=== PATIENT | female | born 1975 | race African-American/Black ===

== ENCOUNTER 2020-03-30 12:45 | Emergency (ER) | payer OTHER, MEDICAID, SELFPAY ==
--- NOTE | ~2020-03-30 | CT_ITS ---
EXAMINATION: CTA chest PE protocol DATE: 03/30/2020 16:01 INDICATION: Dyspnea. COVID-19 positive on 03/16/2020. TECHNIQUE: Computed tomography angiography (CTA) of the chest was performed with 100 mL Omnipaque-350 intravenous contrast timed to evaluate the pulmonary arteries. Coronal maximum intensity projection 3D-reconstructions were created by the technologist. Automated exposure control and iterative reconst ruction technique were employed. The dose-length product was 816.00 mGy-cm. COMPARISON: CT abdomen and pelvis 08/21/2015 FINDINGS: The lung volumes are small. There are patchy groundglass opacities in all lobes. No pleural effusion. The heart size is normal. No pericardial effusion. There is mild mediastinal and left jeana r lymphadenopathy, likely reactive. There is no pulmonary embolus. There is mild thoracic spondylosis . IMPRESSION: 1. No pulmonary embolus. 2. Diffuse lung disease, consistent with COVID-19 pneumonia. 3. Mild mediastinal and left hilar lymphadenopathy, likely reactive. Reviewed, dictated and finalized at location A. 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
--- NOTE | ~2020-03-30 | XR_ITS ---
EXAMINATION: XR chest 1V portable INDICATION: Cough and shortness of breath TECHNIQUE: Portable AP chest at 1401 hours COMPARISON: None available FINDINGS: Patchy bilateral airspace opacities are present. There is no pleural effusion or pneumothor ax. The cardiomediastinal silhouette is normal. IMPRESSION: 1. Patchy bilateral airspace opacities, likely pneumonia. Reviewed, dictated and finalized at location A. 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
[2020-03-30 13:26] VITALS: BP 129/77; PULSE 111; RESP 20; TEMP 36.5; O2SAT 97
[2020-03-30 13:53] VITALS: BP 120/80; PULSE 103; RESP 18; TEMP 36.7; O2SAT 99
[2020-03-30 14:12] LABS: Basophils Percent Auto 0.7 % (0.2-1.2); Eosinophils Absolute Auto 0.2 K/mm3 (0-0.3); Eosinophils Percent Auto 3.3 % (0-4.4); Hematocrit 40.5 % (37.0-47.0); Hemoglobin 13.8 g/dL (12.0-15.0); Immature Granulocyte Absolute 0.04 K/mm3 (0.00-0.031); Immature Granulocyte Percent A 0.7 % (0-0.5); Lymphocytes Absolute Auto 1.79 K/mm3 (0.9-3.2); Lymphocytes Percent Auto 29.5 % (18.3-44.2); Mean Corpuscular HGB Conc 34.1 g/dl (32-36); Mean Corpuscular Hemoglobin 30.1 pg (26-34); Mean Corpuscular Volume 88.2 fl (80-100); Mean Platelet Volume 9.3 fl (7.4-10.4); Monocytes Absolute Auto 0.5 K/mm3 (0.1-0.6); Monocytes Percent Auto 8.9 % (2.6-8.5); Neutrophils Absolute Auto 3.5 K/mm3 (1.3-6.7); Neutrophils Percent Auto 56.9 % (45.5-73.1); Nucleated Red Blood Cells Perc 0.3 % (0.0-0.2); Platelet Count Result 418 k/mm3 (150-375); Red Blood Count 4.59 M/mm3 (4.2-5.4); White Blood Count 6.1 K/mm3 (4.5-10.0)
--- NOTE | 2020-03-30 14:12 | ED.GENADULT ---
HPI - General Adult General Chief complaint: Shortness of Breath/Dyspnea Stated complaint: covid 03/16/19 Time Seen by Provider: 03/30/20 13:47 Source: RN notes reviewed History of Present Illness HPI narrative: Patient presents emergency department from home for shortness of breath. Patient states she was diagnosed with Covid on 03/16/2020. She states she went through 7 days of symptoms and then the symptoms are resolved. She states she then began to feel short of breath 3 days ago. States that worse with activity she denies any fevers or chills chest pain coughing abdominal pain nausea vomiting or any other symptoms. Related Data Allergies Allergy/AdvReac Type Severity Reaction Status Date / Time No Known Allergies Allergy Unverified 08/21/15 07:05 Review of Systems Review of Systems: Narrative: Gen.: Denies fevers or chills ENT: Denies congestion Respiratory: See HPI CV: Denies chest pain or palpitations GI: Denies abdominal pain nausea, emesis or diarrhea Musculoskeletal: Denies back pain or muscle pain Neuro: Denies numbness, tingling, weakness or focal weakness Skin: Denies rash Except as documented, all other systems reviewed and negative [facility] Past Medical History Medical History (Updated 03/30/20 @ 17:10 by Vishnu Lee DO) COVID-19 Social History Social History Smoking status: Never smoker Alcohol intake: current Exam Narrative: Exam Narrative: APPEARANCE: No acute distress, nontoxic, resting in bed EYES: EOMI HEENT: Normocephalic, atraumatic, OMM RESPIRATORY: No respiratory distress Clear to auscultation bilaterally with no rhonchi wheezing or rales. CARDIOVASCULAR: Regular rate and rhythm without murmurs rubs or gallops. ABDOMINAL: Soft, nontender, nondistended, no rebound or guarding MUSCULOSKELETAl: Moves all extremities. No clubbing, cyanosis or edema. NEURO: Awake and alert. Following commands, speech normal, no focal deficits SKIN:: Warm, dry. No rashes lesions or abrasions PSYCHIATRIC: Normal affect/mood, Course Course Emergency Course: Discussed with patient her elevated blood sugar. No history of diabetes. Attempted to call and discussed with the patient's primary care physician dr Alfonso but he is unavailable and can only speak with his nurse I updated on the elevated blood sugar and the need for the patient follow-up in the office she requested patient call. Secondary to this with elevated blood sugar will start patient on low-dose Metformin Discussed with patient results of workup and diagnosis. Discussed need for follow-up with primary care, proper use of medication, and reasons to return to the emergency department. Patient understands and agrees to current treatment plan Vital Signs Vital signs: Vital Signs Temperature 97.7 F 03/30/20 13:26 Pulse Rate 111 H 03/30/20 13:26 Respiratory Rate 20 03/30/20 13:26 Blood Pressure 129/77 03/30/20 13:26 Pulse Oximetry 97 03/30/20 13:26 Temperature 98.0 F 03/30/20 13:53 Pulse Rate 103 H 03/30/20 13:53 Respiratory Rate 18 03/30/20 13:53 Blood Pressure 120/80 03/30/20 13:53 Pulse Oximetry 99 03/30/20 13:53 Medical Decision Making Vital Signs Vital Signs: Vital Signs Temperature 97.7 F 03/30/20 13:26 Pulse Rate 111 H 03/30/20 13:26 Respiratory Rate 20 03/30/20 13:26 Blood Pressure 129/77 03/30/20 13:26 Pulse Oximetry 97 03/30/20 13:26 Temperature 98.0 F 03/30/20 13:53 Pulse Rate 103 H 03/30/20 13:53 Respiratory Rate 18 03/30/20 13:53 Blood Pressure 120/80 03/30/20 13:53 Pulse Oximetry 99 03/30/20 13:53 Lab Data Result diagrams: 03/30/20 13:57 03/30/20 13:57 Labs: Lab Results 03/30/20 03/30/20 03/30/20 Range/Units 13:57 13:57 14:32 WBC 6.1 (4.5-10.0) K/mm3 RBC 4.59 (4.2-5.4) M/mm3 Hgb 13.8 (12.0-15.0) g/dL Hct 40.5 (37.0-47.0) % MCV 88.2
[2020-03-30 14:27] LABS: Anion Gap 5 mmol/L (8-16); Blood Urea Nitrogen 13 mg/dL (7-17); Calcium 8.9 mg/dL (8.4-10.2); Carbon Dioxide 23 mmol/L (22-30); Chloride 107 mmol/L (98-107); Estimated CRCL calculation 117 ml/min; Estimated Glomerular Filt Rate > 60; Glucose 317 mg/dL (65-105); Potassium 4.2 mmol/L (3.4-5.0); Sodium 135 mmol/L (137-145)
[2020-03-30 14:48] LABS: Prothrombin Time 14.1 Seconds (11.1-14.7)
[2020-03-30 14:49] LABS: Partial Thromboplastin Time 24.1 SECONDS (22.3-36.8)
[2020-03-30 14:52] LABS: D Dimer 1.33 ug/mL (<0.48)
[2020-03-30 16:00] VITALS: BP 135/76; PULSE 78; RESP 18; O2SAT 99
[2020-03-30] MEDS: DEXAMETHASONE SOD PHOS INJ 4 MG/ML VIAL 6 MG IV PUSH (16:27)
[2020-03-30] MEDS: ALBUTEROL SULFATE (*SP) AEROSOL 1 PUFF 2 PUFF INHALATION (16:31)
[2020-03-30 17:27] LABS: Hemoglobin A1C 10.9 % (<5.7)
[2020-03-30 18:00] VITALS: BP 140/68; PULSE 80; RESP 18; O2SAT 99
== END 2020-03-30 18:02 | disposition home or self-care (01) ==
PROVIDERS: Emergency Provider Emergency Medicine; PCP Internal Medicine Infectious Disease
DX: U07.1 COVID-19 (principal); J12.82 Pneumonia due to coronavirus disease 2019; R73.9 Hyperglycemia, unspecified
CPT/HCPCS: 36415; 71045; 71275; 80048; 83036; 85025; 85380; 85610; 85730; 96374; 99284; A9270; J1100; Q9967

== ENCOUNTER → 2020-06-21 04:29 | Outpatient (CLI) | payer OTHER, MEDICAID, SELFPAY ==
[2020-06-21 19:03] LABS: SARS-CoV-2 RNA PCR Negative
== END ==
PROVIDERS: PCP Internal Medicine Infectious Disease; Visit Provider Obstetrics & Gynecology
DX: Z01.812 Encounter for preprocedural laboratory examination (principal); Z20.822 Contact with and (suspected) exposure to COVID-19
CPT/HCPCS: C9803; U0003; U0005

== ENCOUNTER 2020-06-21 08:37 | Outpatient (CLI) | payer OTHER, MEDICAID, SELFPAY ==
--- NOTE | 2020-06-21 09:00 | ECG_ITS ---
Measurements Intervals [place] Rate: 76 P: 30 ID: 180 QRS: 0 QRSD: 86 T: 7 QT: 357 QTc: 403 Interpretive Statements SINUS RHYTHM DELAYED PRECORDIAL R/S TRANSITION VOLTAGE CRITERIA FOR LVH BORDERLINE T WAVE ABNORMALITY- INFERIOR LEADS BASELINE ARTIFACT- I, II, III, AVL, AVF BORDERLINE ECG Electronically Signed On 06-21-2020 9:17:51 CDT by Ron Rowell D.O.
[2020-06-21 09:18] LABS: Basophils Percent Auto 0.3 % (0.2-1.2); Eosinophils Absolute Auto 0.2 K/mm3 (0-0.3); Eosinophils Percent Auto 3.4 % (0-4.4); Hemoglobin 13.1 g/dL (12.0-15.0); Immature Granulocyte Absolute 0.02 K/mm3 (0.00-0.031); Immature Granulocyte Percent A 0.3 % (0-0.5); Lymphocytes Absolute Auto 2.29 K/mm3 (0.9-3.2); Lymphocytes Percent Auto 37.5 % (18.3-44.2); Mean Corpuscular HGB Conc 33.6 g/dl (32-36); Mean Corpuscular Hemoglobin 29.8 pg (26-34); Mean Corpuscular Volume 88.6 fl (80-100); Mean Platelet Volume 9.6 fl (7.4-10.4); Monocytes Absolute Auto 0.6 K/mm3 (0.1-0.6); Neutrophils Percent Auto 49.5 % (45.5-73.1); Platelet Count Result 276 k/mm3 (150-375); Red Cell Distribution Width 13.4 % (11.5-14.5); White Blood Count 6.1 K/mm3 (4.5-10.0)
[2020-06-21 09:31] LABS: Anion Gap 3 mmol/L (8-16); Blood Urea Nitrogen 11 mg/dL (7-17); Calcium 8.1 mg/dL (8.4-10.2); Carbon Dioxide 26 mmol/L (22-30); Chloride 107 mmol/L (98-107); Estimated Glomerular Filt Rate > 60; Glucose 152 mg/dL (65-105); Potassium 3.9 mmol/L (3.4-5.0); Sodium 136 mmol/L (137-145)
== END 2020-06-21 08:38 | disposition home or self-care (01) ==
LOC: ANHSURGERY 08:42
PROVIDERS: Anesthesiology; PCP Internal Medicine Infectious Disease; Visit Provider Obstetrics & Gynecology
DX: R73.9 Hyperglycemia, unspecified (principal); I10 Essential (primary) hypertension; D25.9 Leiomyoma of uterus, unspecified; Z01.818 Encounter for other preprocedural examination
CPT/HCPCS: 36415; 80048; 85025; 86850; 86900; 86901; 93005

== ENCOUNTER 2020-06-24 02:02 | Day surgery (SDC) | payer OTHER, MEDICAID, SELFPAY ==
[2020-06-10 14:32] VITALS: BMI 34.4
--- NOTE | 2020-06-21 09:31 | P.HP_ITS ---
H&P: HPI History of Present Illness Date/Time: 06/21/20 09:31 Worse is 44 she female multiparous needed for fever bilateral salpingectomy secondary to bleeding pelvic pain uterine fibroids with enlarged uterus. She has a failed ablation. She also has a hernia which Dr. 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 Gender identity (if verbalized by the patient): Female Spiritual care concerns: No Meds Home Medications and Allergies Home Medications Medication Instructions Recorded Confirmed Type lisinopril 10 mg tablet 10 mg PO DAILY 05/23/20 06/10/20 History albuterol sulfate 2 puff INHALATION Q4-6H PRN 06/10/20 06/10/20 History hydrochlorothiazide 12.5 mg PO DAILY 06/10/20 06/10/20 History metformin 500 mg PO BID 06/10/20 06/10/20 History Allergies Allergy/AdvReac Type Severity Reaction Status Date / Time No Known Allergies Allergy Verified 06/10/20 14:32 Exam Const: General: no acute distress Eyes: General: appearance normal, both eyes and all related structures Neck: Neck: supple and no JVD Thyroid: thyroid normal Resp: Effort & Inspection: normal respiratory effort Auscultation: clear to auscultation bilaterally Cardio: Rate: regular rate Rhythm: regular rhythm GI: Inspection: non-distended GI Palp: Yes Soft to palpation, No Tenderness to palpation present (GI) and No Guarding due to palpation present (GI) Auscultation: normal bowel sounds : General: Yes bladder normal to inspection External Female Exam: normal external appearance Speculum Exam - Vagina: normal appearance of the vagina Speculum Exam - Cervix: normal appearance of the cervix Bimanual exam- vagina & uterus: enlarged Bimanual Exam- Adnexa, other: no masses Skin: General skin exam: no rashes or lesions noted Extrem: General: normal to inspection and no edema Psych: Mental Status: mental status grossly normal Affect: normal affect Assessment and Plan Additional Plan impression: Enlarged uterus with pelvic pain and bleeding with failed ablation Plan: Robotic total vaginal hysterectomy and bilateral salpingectomies
[2020-06-24] VITALS (13 sets, daily range): BP systolic 122–153; BP diastolic 66–104; PULSE 83–107; RESP 16–20; TEMP 36.2–37.1; O2SAT 93–100
--- NOTE | 2020-06-24 06:43 | WPDHPUPDATE1 ---
History and Physical Update Update Date/Time: 06/24/20 06:43 History and Physical has been reviewed, including an updated exam of the patient. There are NO changes in the patient's condition. Risks, benefits, and alternatives have been discussed and questions answered. Patient agrees to proceed with procedure.
[2020-06-24] MEDS: ACETAMINOPHEN 500 MG TABLET 1000 MG PO (10:45)
--- NOTE | 2020-06-24 10:49 | WPDHPUPDATE1 ---
History and Physical Update Update Date/Time: 06/24/20 10:49 History and Physical has been reviewed, including an updated exam of the patient. There are NO changes in the patient's condition. Risks, benefits, and alternatives have been discussed and questions answered. Patient agrees to proceed with procedure.
[2020-06-24] MEDS: LACTATED RINGERS 1,000 ML 30 ML IV CONT ×2 (10:55→13:28)
[2020-06-24] MEDS: KETOROLAC 15 MG/ML VIAL (*BKC) IV PUSH (11:02)
[2020-06-24 11:05] LABS: Glucose Point of Care 151 (65-105)
--- NOTE | 2020-06-24 11:17 | P.PNAN_ITS ---
Anes - Initial Pre Proc Eval Procedure: Operation Date: 06/24/20 12:00 Proposed Procedures p Robotic Assisted Total Vaginal Hysterectomy With Bilateral Salpingectomy - Ra Daly MD s Umbilical Hernia Repair, Possible Mesh - Rory Park DO Date/Time: 06/24/20 11:17 Surgeon: Ra Daly MD Pre Op Diagnosis: pelvic pain, irregular bleeding, fibroids, Patient Data Age: 44 Gender: F Height: 5 ft 11 in Weight: 112 kg Allergies Allergy/AdvReac Type Severity Reaction Status Date / Time No Known Allergies Allergy Verified 06/24/20 10:36 Home Medications Medication Instructions Recorded Confirmed Type lisinopril 10 mg tablet 10 mg PO DAILY 05/23/20 06/24/20 History albuterol sulfate 2 puff INHALATION Q4-6H PRN 06/10/20 06/24/20 History metformin 500 mg PO BID 06/10/20 06/24/20 History hydrocodone-acetaminophen 1 tablet PO Q6H PRN #30 tablet 06/24/20 Rx Laboratory Tests 06/24/20 10:55 POC Capillary Glucose 151 mg/dl H mg/dl (65-105) Patient hx anesthesia problems: none Family hx anesthesia problems: none PMFSH Past Medical History Medical History Asthma COVID-19 03/16/2020 HTN (hypertension) Surgical History Surgical History History of S/P endometrial ablation Social History Social History Smoking status: Never smoker Alcohol intake: current Drinks per week: 1 Substance use: never Substance use type: does not use Living arrangements: with family 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 Gender identity (if verbalized by the patient): Female Sexual Orientation (if Verbalized by the Patient): Straight or Heterosexual Spiritual care concerns: No Anes - Eval Final PreProcedure Day of Procedure 06/24/20 11:17 Patient weight: obese Heart: regular rate and rhythm Lungs: clear to auscultation Airway: Mallampati scale class II Neurological: alert and oriented Last oral intake: >/= 8 hours ASA classification: III Emergent: no Anesthetic plan: proceed Anesthesia type and monitoring: general LMA and standard monitoring Informed Consent: The patient's anesthetic plan and its attendant risks and benefits were discussed with the patient/family/POA. Questions were solicited and answers provided to the satisfaction of the patient/family/POA.
[2020-06-24] MEDS: ceFAZolin 2 GM/D5W 50 ML 2 GM/50 ML BAG IVPB (11:21)
--- NOTE | 2020-06-24 11:39 | SUR.PREOP ---
1100-DR. PARSONS AWARE PT TOOK SELF OFF METFORMIN AFTER 1 DAY USAGE ON 03/25/2020.
[2020-06-24] MEDS: BUPIVACAINE/EPINEPHRINE 0.5% 30 ML VIAL INFILTRATE (12:18)
--- NOTE | 2020-06-24 12:52 | PM.PROC ---
Procedure Note - Detailed Date of procedure: 06/24/20 Pre-op diagnosis: pelvic pain, irregular bleeding, fibroids, Surgeon: Ra Daly MD Postop diagnosis: Pelvic pain/irregular bleeding/uterine fibroids/pelvic adhesions Procedure: Robotic total vaginal hysterectomy and bilateral salpingectomies/extensive lysis of adhesions. This was done in conjunction with a umbilical hernia repair by Dr. Rory trevizo Anesthesia: General endotracheal EBL: 75cc Findings: A large umbilical hernia. Markedly enlarged uterus. Tubes status post tubal ligation. Normal-appearing ovaries bilaterally. Complications: None Description of procedure: The patient was prepped draped in the normal sterile fashion placed in the dorsal lithotomy position. Under excellent general endotracheal anesthesia weighted speculum placed in posterior fornix vagina. Anterior lip of the cervix grasped with a single-tooth tenaculum and the uterus sounded to 11cm. Serial dilatation with fragmented dilators performed followed by passes the 10. ELIZA and the 3. Cold cup. A 16 [place] catheter was placed in bladder and drained of clear urine. The remainder the instruments removed. The gloves were changed. A supraumbilical incision made in the [place] needle passed in the abdomen. The abdomen filled with CO2 gas to 15mm Hg. The 8mm trocar advanced in the abdomen downside visualized and no injury seen. Gas reattached patient placed in Trendelenburg and right left lateral quadrant incisions were made 8mm trocars were advanced under direct visualization. A right upper quadrant incision made the 10mm trocar advanced under direct visualization assuring no injury. This large hernia was noted in the umbilicus and using sharp dissection was sharply dissected using Endo Mary Alice until visualization could be undertaken pelvis. The robot was docked. Attention was turned to the console. The left round ligament was grasped, burned, cut anteriorly a bladder flap was formed and brought across the anterior portion of the uterus reflecting the bladder caudally to the opposite round ligament was clamped, burned, cut. Next the fallopian tube was dissected away from the ovary on left and then this was repeated dissecting the fallopian tube away on right. Utero-ovarian ligament on the left was serially skeletonized. This was clamped, burned, cut and brought to the previously cut ligament. Conserving the right ovary and the utero-ovarian ligament was clamped, burned, cut and brought to the level of the previously cut round. Left cardinal and broad ligaments to in serially skeletonized and brought down the lateral edge of the uterus clamping burning cutting until the uterine vessels could be seen on left these were large tortuous individual clamping burning cutting was undertaken bilaterally. These were clamped, burned, cut. Right the cardinal broad ligaments were serially skeletonized clamped, burned, cut and brought down the lateral edge of the uterus and to the uterine vessels could be seen there these were individually clamped, burned, cut. Good blanching of the uterus was seen at a colpotomy incision was made the cervix uterus and tubes brought through the vagina. Blood loss estimated 75cc. The vagina closed with continuous running 0V lock from lateral edge to lateral edge back to midline. Irrigation undertaken to clear and the vaginal cuff area sprinkled with [place] term over the raw surface areas. Blood loss estimated 75cc all sponge, needle, instrument counts were correct. That point Dr. Rory polanco took over to repair the hernia. There were no complications to this point
--- NOTE | 2020-06-24 13:13 | P.OP_ITS ---
Procedure Note - Detailed Date of procedure: 06/24/20 Pre-op diagnosis: umbilical hernia, uterine bleeding Post-op diagnosis: same Procedure performed: Umbilical hernia repair Description of procedure: Procedure as well as risks, benefits, and alternatives were discussed with the patient. Written consent was obtained and placed in chart prior to procedure. Patient was brought back to surgical suite. She was placed supine on operating table. She was then intubated by Anesthesia Department. Her abdomen was prepped and draped in sterile fashion using chlorhexidine prep. The patient underwent robotic hysterectomy by Dr. Carla Cruz. Please refer to his operative report for details. After completing the hysterectomy, I was called to the room to repair the umbilical hernia. 0.5% bupivacaine with epinephrine was inf iltrated locally around the operative area. A 4 cm cm curvilinear incision was made just superior to the umbilicus using a 15 blade scalpel. Electrocautery was used for hemostasis and for dissection down through the subcutaneous fat. Hernia sac was encountered and this was carefully freed up from surrounding subcutaneous fat using electrocautery. The hernia sac was freed up all the way down to the level of the fascia, and then it was transected using electrocautery. The hernia sac was excised and sent to the lab for pathology. The umbilical stalk was then lifted off of the fascia with electrocautery. The hernia defect was then measured. This was measuring approximately 10 mm. The decision was made to repair this primarily. 0 Ethibond itseco-ht-keibw sutures were placed transversely to approximate the fascia. The fascia appeared to come together without any significant tension with 3 nmgpsw-rj-[id number] sutures. The repair was inspected and appeared secure. 0.5% bupivacaine with epinephrine was infiltrated around the fascia and subcutaneous space. The umbilical stalk was then reapproximated to the fascia using a 3 0 Vicryl simple interrupted suture. The deep dermis was reapproximated using 3 0 Vicryl simple interrupted sutures, and then the skin was approximated using 4 Monocryl running subcuticular suture. Exofin glue was then applied on top. The patient was then awakened from anesthesia, extubated, and transferred to recovery. Anesthesia: GETA and local (0.5% bupivacaine with epinephrine) Surgeon: Rory Park DO Estimated blood loss (mL): 10 Pathology: yes (Hernia sac) Complications: No immediate complications Condition: stable Disposition: observation Findings: This is a 44-year-old woman who presented with a periumbilical bulge that had been present for about a year or so. This had gradually gotten larger and she has a prior CT that showed evidence of a hernia defect at the umbilicus. She was being evaluated for heavy menstrual bleeding and uterine fibroids and hysterectomy was recommended. Patient wished to proceed with umbilical hernia repair at the time of hysterectomy. After completing the robotic hysterectomy, I was called in to proceed with umbilical hernia repair. The patient was found to have a 1 cm umbilical hernia containing preperitoneal fat. The hernia sac was excised and sent to the lab for pathology. The fascial edges appeared to come together without significant tension therefore decision was made to repair this primarily using 0 Ethibond [id number]-js-ftcvw sutures. A total of 3 sutures were placed transversely to bring the fascia together. The repair appeared secure.
[2020-06-24] MEDS: fentaNYL CITRATE INJ (*CRX) 100 MCG/2 ML VIAL 25 MCG IV PUSH ×4 (13:40→13:59)
[2020-06-24] MEDS: DEXTROSE 5%/LACTATED RINGERS 1,000 ML 125 ML IV CONT (15:58)
[2020-06-24 16:00] LABS: Glucose Point of Care 161 (65-105)
[2020-06-24] MEDS: KETOROLAC 30 MG/ML VIAL (*BKC) IV PUSH (16:05)
[2020-06-24] MEDS: SIMETHICONE 80 MG TAB.CHEW PO (16:06)
[2020-06-24] MEDS: DOCUSATE SODIUM 100 MG CAPSULE PO (16:20)
[2020-06-24] MEDS: HYDROcodone/acetaminophen (*CRX) 10-325 MG TABLET 1 TAB PO (16:21)
[2020-06-25] MEDS: HYDROcodone/acetaminophen (*CRX) 5-325 MG TABLET 1 TAB PO (05:01)
[2020-06-25 05:07] VITALS: BP 130/76; PULSE 86; RESP 18; TEMP 36.8; O2SAT 96
[2020-06-25 06:00] LABS: Basophils Percent Auto 0.2 % (0.2-1.2); Eosinophils Absolute Auto 0.1 K/mm3 (0-0.3); Eosinophils Percent Auto 1.7 % (0-4.4); Hematocrit 36.1 % (37.0-47.0); Hemoglobin 12.1 g/dL (12.0-15.0); Immature Granulocyte Absolute 0.03 K/mm3 (0.00-0.031); Immature Granulocyte Percent A 0.4 % (0-0.5); Lymphocytes Absolute Auto 1.88 K/mm3 (0.9-3.2); Lymphocytes Percent Auto 22.2 % (18.3-44.2); Mean Corpuscular HGB Conc 33.5 g/dl (32-36); Mean Corpuscular Volume 89.4 fl (80-100); Mean Platelet Volume 9.8 fl (7.4-10.4); Monocytes Absolute Auto 0.8 K/mm3 (0.1-0.6); Monocytes Percent Auto 9.5 % (2.6-8.5); Neutrophils Absolute Auto 5.6 K/mm3 (1.3-6.7); Platelet Count Result 296 k/mm3 (150-375); Red Blood Count 4.04 M/mm3 (4.2-5.4); Red Cell Distribution Width 13.2 % (11.5-14.5); White Blood Count 8.5 K/mm3 (4.5-10.0)
--- NOTE | 2020-06-25 07:50 | P.PNAN_ITS ---
Anes - Prog Note Post-Op Date/Time: 06/25/20 07:50 Cardiovascular status: normal Respiratory status: normal Airway patency: baseline Mental status: baseline Post-Op hydration status: normal Vital Signs: Last Vital Signs Temp 36.8 C 06/25/20 05:07 Pulse 86 06/25/20 05:07 Resp 18 06/25/20 05:07 BP 130/76 06/25/20 05:07 Pulse Ox 96 06/25/20 05:07 Pain Score (VAS): 4 I/O: Intake & Output 06/24/20 06/24/20 06/25/20 15:59 23:59 07:59 Intake Total 300 1170 400 Output Total 100 500 900 Balance 200 670 -500 Laboratory Tests 06/25/20 04:40 06/24/20 06/24/20 06/25/20 10:55 13:37 04:40 WBC 8.5 RBC 4.04 L Hgb 12.1 Hct 36.1 L MCV 89.4 MCH 30.0 MCHC 33.5 RDW 13.2 Plt Count 296 MPV 9.8 Immature Gran % (Auto) 0.4 Neut % (Auto) 66.0 Lymph % (Auto) 22.2 [place] % (Auto) 9.5 H Eos % (Auto) 1.7 Baso % (Auto) 0.2 Lymph # (Auto) 1.88 [place] # (Auto) 0.8 H Eos # (Auto) 0.1 Baso # (Auto) 0.0 Abs Immat Gran (auto) 0.03 Absolute Neuts (auto) 5.6 Absolute Nucleated RBC 0.0 Nucleated RBC % 0.0 POC Capillary Glucose 151 H 161 H Post-procedural complaints: none Patient Feedback: Patient satisfied with anesthetic care.
--- NOTE | 2020-06-25 08:14 | PM.DS ---
DS: Admitting Diagnosis Admitting Diagnosis Admitting Diagnosis: abnormal uterine bleeding, pelvic pain, enlarged uterus DS: Summary Hospital Course Hospital Course: Robert An was admitted after robotic assisted total laparoscopic hysterectomy and bilateral salpingectomy for abnormal uterine bleeding, pelvic pain and fibroids. The above procedure was performed with no complications. She is doing well post op. She states her pain is well controlled with PO medications. She reports minimal bleeding. She is ambulating up to the chair. Her forrest catheter was removed. She is tolerating PO without N/V. She reports passing flatus. Status at Discharge Overall status at discharge: patient is progressing back to baseline Time Spent with Patient Time attestation: Total time spent providing and/or coordinating discharge services: Time spent: Less than 30 minutes Exam Const: General: comfortable and no acute distress Limitations: no limitations Resp: Effort & Inspection: normal respiratory effort Auscultation: clear to auscultation bilaterally Cardio: Rate: regular rate Rhythm: regular rhythm GI: Inspection: non-distended GI Palp: Yes Soft to palpation, Yes Tenderness to palpation present (GI) (milder tenderness to deep palpation) and No Guarding due to palpation present (GI) Auscultation: normal bowel sounds Other: incisions C/D/I covered with dermabond Urinary Catheter: Urinary Catheter: urine clear Skin: General skin exam: normal color Extrem: General: normal to inspection Psych: Mental Status: mental status grossly normal Affect: normal affect DS: Data Data Completed and Pending Pending studies at discharge: Pending at discharge 06/24/20 12:18 Surgical [PTH] Routine Surgical [PTH] Routine Labs on day of discharge: Labs from last 24 hours 06/25/20 06/24/20 06/24/20 04:40 13:37 10:55 WBC 8.5 RBC 4.04 L Hgb 12.1 Hct 36.1 L MCV 89.4 MCH 30.0 MCHC 33.5 RDW 13.2 Plt Count 296 MPV 9.8 Immature Gran % (Auto) 0.4 Neut % (Auto) 66.0 Lymph % (Auto) 22.2 [place] % (Auto) 9.5 H Eos % (Auto) 1.7 Baso % (Auto) 0.2 Lymph # (Auto) 1.88 [place] # (Auto) 0.8 H Eos # (Auto) 0.1 Baso # (Auto) 0.0 Abs Immat Gran (auto) 0.03 Absolute Neuts (auto) 5.6 Absolute Nucleated RBC 0.0 Nucleated RBC % 0.0 POC Capillary Glucose 161 H 151 H Discharge Plan Discharge Patient Disposition: Home, Self-Care Discharge Instructions: DISCHARGE INSTRUCTION SHEET FOR HERNIA, GALLBLADDER AND APPENDIX SURGERIES DR. JANE PATIENT TO TAKE HOME 1. May shower in 24 hours, no soaking in bath x 2weeks. 2. Call office for: Wound increasingly painful or bleeding Vomiting Fever of greater than 101 degrees 3. If no bowel movement for three days, take 1 oz. (30 ml) Milk of Magnesia or MiraLax 17g 1 to 2 times daily. 4. No heavy lifting > 10-15 pounds x6 weeks for hernia repairs and 2 weeks for laparoscopic cholecystectomy or appendectomy. 5. No driving for 3 days or while taking narcotic pain medications. 6. Ice to surgical site for 48 hours (30 min on, then 30 min off). 7. Up walking 10-30 minutes three times per day. 8. Resume previous home medications. 9. Follow-up 10-14 days in office for wound check or as previously scheduled. ([phone]) 10. Oral pain medications prescription to be sent to pharmacy. Take Tylenol 500mg every 6 hours and Ibuprofen 600mg every 6 hours for the first 2 days, then as needed. 11. NUTRITION: Start out by drinking fluids and increase your diet as tolerated. If you experience nausea, try dry toast, crackers, and 7-UP. If nausea or vomiting persists, contact your surgeon?s office. 12. Gallbladders-Low Fat Diet for 2 weeks (send care note of low fat diet) 13. Inguinal Hernias-wear scrotal support for 48 hours 14. Abdominal Hernias-if sent julius
[2020-06-25 08:15] VITALS: BP 147/76; PULSE 92; RESP 18; TEMP 36.3; O2SAT 98
[2020-06-25] MEDS: IBUPROFEN 600 MG TABLET PO (09:05)
[2020-06-25] MEDS: DOCUSATE SODIUM 100 MG CAPSULE PO (09:05)
[2020-06-25] MEDS: ENOXAPARIN 40 MG/0.4 ML SYRINGE SUB-Q (09:05)
[2020-06-25] MEDS: SIMETHICONE 80 MG TAB.CHEW PO (09:05)
[2020-06-25] MEDS: lisinopriL 10 MG TABLET PO (09:08)
[2020-06-25 09:45] VITALS: PULSE 92; RESP 18; O2SAT 98
== END 2020-06-25 10:00 | disposition home or self-care (01) ==
LOC: ANHSURGERY 13:18 → ANHOB2 15:27
PROVIDERS: Surgery; PCP Internal Medicine Infectious Disease; Visit Provider Obstetrics & Gynecology
PROC: (CPT 58552; principal; 2020-06-24 12:00)
PROC: (CPT 49585; 2020-06-24 12:00)
DX: R10.2 Pelvic and perineal pain (principal); K42.9 Umbilical hernia without obstruction or gangrene; N80.0 Endometriosis of uterus; D25.1 Intramural leiomyoma of uterus; N73.6 Female pelvic peritoneal adhesions (postinfective); Z79.84 Long term (current) use of oral hypoglycemic drugs; Z79.51 Long term (current) use of inhaled steroids; N92.1 Excessive and frequent menstruation with irregular cycle; J45.909 Unspecified asthma, uncomplicated; Z86.16 Personal history of COVID-19; E66.9 Obesity, unspecified; Z68.35 Body mass index [BMI] 35.0-35.9, adult; I10 Essential (primary) hypertension
CPT/HCPCS: 58552; 49585; S2900; 36415; 80048; 82948; 85025; 86850; 86900; 86901; 88300; 88307; 93005; 99199; A9270; C9803; J0330; J0690; J1650; J1885; J2250; J2370; J2405; J2704; J2710; J3010; J7030; J7120; J7121; U0003; U0005

== ENCOUNTER 2020-09-30 11:43 | Emergency (ER) | payer OTHER, MEDICAID, SELFPAY ==
[2020-09-30 11:50] VITALS: PULSE 107; RESP 18; TEMP 37.7; O2SAT 99
[2020-09-30] MEDS: KETOROLAC 30 MG/ML VIAL (*BKC) IV PUSH (12:33)
[2020-09-30] MEDS: SODIUM CHLORIDE 0.9% IV 1,000 ML 999 ML IV CONT (12:33)
[2020-09-30] MEDS: LORazepam INJ (*CRX) 2 MG/ML VIAL 1 MG IV PUSH (12:34)
--- NOTE | 2020-09-30 12:35 | ED.GENADULT ---
HPI - General Adult General Chief complaint: Skin/Abscess/Foreign Body Stated complaint: Abscess Time Seen by Provider: 09/30/20 12:03 Source: patient and RN notes reviewed Mode of arrival: ambulatory Limitations: no limitations History of Present Illness HPI narrative: Patient is a 45-year-old female who presents with red tender swollen lesion in the right groin involving the right labial region denies similar occurrence in the past lesion is increased over the last 4 days. Patient has tried [id number] medications no improvement. Pain is worse with palpation and activity. Patient presents per private vehicle in no distress Related Data Home Medications Medication Instructions Recorded Confirmed lisinopril 10 mg tablet 10 mg PO DAILY 05/23/20 08/10/20 albuterol sulfate 2 puff INHALATION Q4-6H PRN 06/10/20 08/10/20 metformin 500 mg PO BID 06/10/20 08/10/20 Allergies Allergy/AdvReac Type Severity Reaction Status Date / Time No Known Allergies Allergy Verified 09/30/20 11:55 Review of Systems Review of Systems: All systems reviewed & are unremarkable except as noted in HPI and below PMFSH Past Medical History Medical History Asthma COVID-19 03/16/2020 HTN (hypertension) Surgical History Surgical History H/O umbilical hernia repair History of S/P endometrial ablation Social History Social History Smoking status: Never smoker Alcohol intake: current Drinks per week: 1 Substance use: never Substance use type: does not use 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 HEAD: Normocephalic, atraumatic. EYES: PERRLA and EOMI. ENT: Nares clear, no rhinorrhea or epistaxis. Mucous membranes moist. CHEST: Clear to auscultation. No respiratory distress. No wheezes rales or rhonchi HEART: Regular rate and rhythm. No murmur heard. Normal peripheral pulses. ABDOMEN: Soft, nontender, nondistended, EXTREMITIES: Normal range of motion. No edema. SKIN: Warm, dry, no rash. Patient with red tender swollen fluctuant area involving the right lower labial region. NEURO: No focal deficits. Alert and oriented x3. Cranial nerves II through XII grossly intact PSYCH: Normal mood and affect. Course Course Emergency Course: Patient had I&D of the lesion in the emergency department in the room no distress will be discharged will follow with her sap pp consultant felt appropriate for outpatient reevaluation given reasons to return Vital Signs Vital signs: Vital Signs Temperature 99.9 F H 09/30/20 11:50 Pulse Rate 107 H 09/30/20 11:50 Respiratory Rate 18 09/30/20 11:50 Pulse Oximetry 99 09/30/20 11:50 Temperature 99.9 F H 09/30/20 11:50 Pulse Rate 107 H 09/30/20 11:50 Respiratory Rate 18 09/30/20 11:50 Pulse Oximetry 99 09/30/20 11:50 Procedures Abscess I/D other: Date of Incision: 09/30/20 Time of Incision: 14:41 Side (if applicable): right Local Anesthetic: lidocaine 1% Technique: incised with #11 blade Amount of fluid expressed (mL): 10 Irrigation: No Packing used?: iodoform I&D Results: Pus and Blood Abcess I&D Additional Comments: Wound was explored with hemostats to break up loculations iodoform packing was placed antibiotic ointment 4 x 4 placed post procedure Medical Decision Making MDM Narrative Medical decision making narrative: Patient had drainage of abscess will follow with primary care felt appropriate for outpatient reevaluation given fluids and antibiotics in the emergency department Vital Signs Vital Signs: Vital Signs
[2020-09-30] MEDS: ceFAZolin 2 GM/D5W 50 ML 2 GM/50 ML BAG IVPB (12:51)
--- NOTE | 2020-09-30 14:36 | PC.NURSE ---
in room with Samuel PHILLIPS to assist with I&D of vaginal abscess. Pt tolerated well.
[2020-09-30 14:44] VITALS: BP 134/91; PULSE 93; RESP 18; TEMP 36.3; O2SAT 100
== END 2020-09-30 14:52 | disposition home or self-care (01) ==
PROVIDERS: Emergency Provider Emergency Medicine; PCP Internal Medicine Infectious Disease
DX: N76.4 Abscess of vulva (principal); J45.909 Unspecified asthma, uncomplicated; I10 Essential (primary) hypertension; Z86.16 Personal history of COVID-19
CPT/HCPCS: 10061; 56405; 96361; 96365; 96375; 99284; J0690; J1885; J2060; J7030

== ENCOUNTER 2020-10-04 09:35 | Emergency (ER) | payer OTHER, MEDICAID, SELFPAY ==
[2020-10-04 09:47] VITALS: BP 151/98; PULSE 92; RESP 15; TEMP 36.8; O2SAT 100
--- NOTE | 2020-10-04 10:35 | ED.GENADULT ---
HPI - General Adult General Chief complaint: Unspecified Stated complaint: packing removal Time Seen by Provider: 10/04/20 09:39 Source: patient Mode of arrival: ambulatory Limitations: no limitations History of Present Illness HPI narrative: This is a 45-year-old female that presents to the emergency department for a wound to the labia present over the last week. Reports she was seen in the ED here 4 days ago and had an I&D of the area. They did place some packing. She presented today for wound check and packing removal. She was unsure if the packing was still in place or if it had fallen out in the shower. She was unable to get into her manager scheduling for follow-up, so presented back to the ED. Denies fever, or worsening erythema or edema of the area. Related Data Home Medications Medication Instructions Recorded Confirmed lisinopril 10 mg tablet 10 mg PO DAILY 05/23/20 08/10/20 albuterol sulfate 2 puff INHALATION Q4-6H PRN 06/10/20 08/10/20 metformin 500 mg PO BID 06/10/20 08/10/20 Allergies Allergy/AdvReac Type Severity Reaction Status Date / Time No Known Allergies Allergy Verified 10/04/20 09:50 Review of Systems Review of Systems: Narrative: CONSTITUTIONAL: Denies fever SKIN: Denies rash All systems reviewed & are unremarkable except as noted in HPI and below PMFSH Past Medical History Medical History Asthma COVID-19 03/16/2020 HTN (hypertension) Surgical History Surgical History H/O umbilical hernia repair History of S/P endometrial ablation Social History Social History Smoking status: Never smoker Alcohol intake: current Drinks per week: 1 Substance use: never Substance use type: does not use 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 HEAD: Normocephalic, atraumatic. EYES: EOMI. EXTREMITIES: Normal range of motion. No edema. SKIN: Warm, dry, no rash. NEURO: No focal deficits. Alert and oriented x3. PSYCH: Normal mood and affect FEMALE GENITAL: Right lower labia with 1cm incision present, no surrounding erythema or fluctuance noted. Appears to be well healing. I did explore the wound, and there is no packing in place Course Vital Signs Vital signs: Vital Signs Temperature 98.2 F 10/04/20 09:47 Pulse Rate 92 10/04/20 09:47 Respiratory Rate 15 10/04/20 09:47 Blood Pressure 151/98 H 10/04/20 09:47 Pulse Oximetry 100 10/04/20 09:47 Temperature 98.2 F 10/04/20 09:47 Pulse Rate 92 10/04/20 09:47 Respiratory Rate 15 10/04/20 09:47 Blood Pressure 151/98 H 10/04/20 09:47 Pulse Oximetry 100 10/04/20 09:47 Medical Decision Making MDM Narrative Medical decision making narrative: Patient presents to the emergency department for follow-up wound check. Had a labial abscess incision and drainage in the emergency department 4 days ago. She is afebrile and nontoxic-appearing. The wound does appear to be well-healing. I did explore the wound and there is no packing present. This must of fallen out at home already. Patient instructed to continue her oral antibiotics as prescribed. Instructed on continued care of the wound. She is to follow-up with her manager scheduling. She was given warnings to return to the ER Vital Signs Vital Signs: Vital Signs Temperature 98.2 F 10/04/20 09:47 Pulse Rate 92 10/04/20 09:47 Respiratory Rate 15 10/04/20 09:47 Blood Pressure 151/98 H 10/04/20 09:47 Pulse Oximetry 100 10/04/20 09:47 Temperature 98.2 F 10/04/20 09:47 Pulse Rate 92 10/04/20 09:47 Respiratory Rate 15 10/04/20 09:47 Blood Pressure 151/98 H
[2020-10-04 10:48] VITALS: RESP 16
== END 2020-10-04 10:49 | disposition home or self-care (01) ==
PROVIDERS: Emergency Provider Emergency Medicine
DX: Z48.01 Encounter for change or removal of surgical wound dressing (principal); J45.909 Unspecified asthma, uncomplicated; I10 Essential (primary) hypertension; Z86.16 Personal history of COVID-19; Z79.84 Long term (current) use of oral hypoglycemic drugs
CPT/HCPCS: 99281

== ENCOUNTER 2021-06-19 12:10 | Emergency (ER) | payer OTHER, MEDICAID, SELFPAY ==
[2021-06-19 13:04] VITALS: BP 124/94; PULSE 98; RESP 18; TEMP 36.3; O2SAT 98
--- NOTE | 2021-06-19 13:43 | ED.URI ---
HPI - URI/Sore Throat General Chief Complaint: Upper Respiratory Infection Stated Complaint: cold x 2 weeks, fever Time Seen by Provider: 06/19/21 13:36 Source: patient Mode of arrival: ambulatory Limitations: no limitations History of Present Illness HPI Narrative: 45-year-old female presents emergency room secondary cough and congestion gone for 2 weeks. She states that productive cough some yellow to brownish type sputum. No fevers been noted. She had Covid the first of the year. She been vaccinated. No one is at home has been sick. She denies tobacco smoking. She not taking anything for this prior to coming to emergency room. She is not seen her primary physician. Related Data Home Medications Medication Instructions Recorded Confirmed lisinopril 10 mg tablet 10 mg PO DAILY 05/23/20 06/19/21 albuterol sulfate 2 puff INHALATION Q4-6H PRN 06/10/20 08/10/20 metformin 500 mg PO BID 06/10/20 06/19/21 Allergies Allergy/AdvReac Type Severity Reaction Status Date / Time No Known Allergies Allergy Verified 06/19/21 13:19 Review of Systems Review of Systems: CONSTITUTIONAL: Denies fever, chills, or sweats. EYES: Denies visual changes, redness, or discharge. ENT: Denies rhinorrhea, congestion, sore throat, or otalgia. CARDIOVASCULAR: Denies chest pain, palpitations, or edema. RESPIRATORY: Cough productive of some yellow to brown sputum. Having some intermittent wheezing.. GASTROINTESTINAL: Denies abdominal pain, nausea, vomiting, or diarrhea. GENITOURINARY: Denies dysuria or hematuria. SKIN: Denies rash or itching. MUSCULOSKELETAL: Denies back pain, joint pain, or myalgia. NEUROLOGIC: Denies headache, numbness, or weakness. PSYCHIATRIC: Denies anxiety or depression. 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 Head normocephalic and atraumatic. EYES: PERRLA/EOMI, conjunctivae very clear. NOSE: Normal with no drainage EARS:TMS clear Lorena Zamudio, with good light reflex. THROAT: Pharynx clear, no exudate. NECK: Supple. No adenopathy, no masses. RESPIRATORY: Coarse rhonchi scattered throughout all lung melgar with some mild end expiratory wheezing but overall good aeration CARDIOVASCULAR: Regular rate and rhythm without murmurs, rubs, or gallops. ABDOMINAL: Soft, nontender, nondistended, no hepatosplenomegaly Musculoskeletal: Moves all extremities. Strength/ROM intact, No edema, No calf tenderness. NEURO: Alert. Cranial nerves II through XII intact. Normal gait. Good coordination. Nonfocal examination. SKIN:: Warm, dry. Normal Color PSYCHIATRIC: Normal affect/mood, normal interaction Course Vital Signs Vital signs: Vital Signs Temperature 97.4 F L 06/19/21 13:04 Pulse Rate 98 06/19/21 13:04 Respiratory Rate 18 06/19/21 13:04 Blood Pressure 124/94 H 06/19/21 13:04 Pulse Oximetry 98 06/19/21 13:04 Temperature 97.4 F L 06/19/21 13:04 Pulse Rate 98 06/19/21 13:04 Respiratory Rate 18 06/19/21 13:04 Blood Pressure 124/94 H 06/19/21 13:04 Pulse Oximetry 98 06/19/21 13:04 MDM - URI/Sore Throat MDM Narrative Medical decision making narrative: Presentation consistent with acute bronchitis with
[2021-06-19 13:54] VITALS: BP 128/84; PULSE 87; RESP 18; TEMP 37.1; O2SAT 97
== END 2021-06-19 13:54 | disposition home or self-care (01) ==
PROVIDERS: Emergency Provider Emergency Medicine
DX: J20.9 Acute bronchitis, unspecified (principal); I10 Essential (primary) hypertension; Z86.16 Personal history of COVID-19; Z87.09 Personal history of other diseases of the respiratory system
CPT/HCPCS: 99283